=== PATIENT | female | born 1995 | race Caucasian/White ===

== ENCOUNTER 2017-08-05 20:40 | Emergency (ER) | payer BC ==
[~2017-08-05] VITALS: Ht 165.1 cm; Wt 90.7 kg
[2017-08-05 20:43] VITALS: BP 145/78
[2017-08-05] MEDS ORDERED: CLIN300C8 PO (21:14)
[2017-08-05] MEDS ORDERED: HYDR-965 PO (21:14)
[2017-08-05] MEDS ORDERED: ONDANSETRON ODT 4 MG TAB.RAPDIS PO ONE (21:15)
--- NOTE | 2017-08-05 21:16 | PHYS DOC ---
General Chief Complaint: DENTAL PROBLEM Stated Complaint: DENTAL PAIN Time Seen by MD: 20:43 Source: patient Exam Limitations: no limitations Problems: History of Present Illness Initial Comments Patient is a 22-year-old who comes to the ED complaining of dental pain. Patient states she's had chronic problems with her left posterior upper molar. She states she tried to see a dentist a few weeks ago and they did not take her insurance. She reports that her symptoms improved and she chose not to follow- up. States that today around 2 PM her tooth began hurting again and by 5 PM was severe, she took ibuprofen without any relief. Denies headache fever chills or myalgias. Pain described as severe sharp and throbbing worse with biting down. Timing/Duration: other Severity: severe Location: dental Prearrival Treatment: over the counter meds Modifying Factors: improves with other Associated Symptoms: tooth pain Allergies: Coded Allergies: No Known Drug Allergies (Unverified , 08/05/17) Past Medical History Medical History: no pertinent history Surgical History: no surgical history Social History Smoker: non-smoker Alcohol: none Drugs: none Constitutional: denies chills, denies fever Ears: denies dizziness, denies tinnitus Nose: denies clots, denies congestion Mouth: see HPI Throat: denies pain, denies discharge, denies neck stiffness, denies painful swallowing, denies difficulty with fluids Respiratory: denies cough, denies shortness of breath Gastrointestinal: denies abdominal pain, denies nausea, denies vomiting Musculoskeletal: denies back pain, denies neck pain Neurological: denies headache, denies weakness Physical Exam General Appearance: mild distress, obese Eyes: bilateral eye normal inspection, bilateral eye PERRL, bilateral eye EOMI Ears: bilateral ear auricle normal, bilateral ear canal normal, bilateral ear TM normal Nose: normal inspection Mouth/Throat: other (left posterior upper molar with severe caries and gingival swelling no purulence no bony tenderness no facial swelling.) Neck: non-tender, supple Cardiovascular/Respiratory: normal peripheral pulses, no respiratory distress 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 Her questions were answered she expressed agreement and understanding with the treatment plan. Departure Time of Disposition: 21:15 Disposition: 01 HOME, SELF-CARE Diagnosis: dental abscess Condition: GOOD Patient Instructions: Dental Abscess Additional Instructions: No driving or operating machinery while taking sedative pain medications. Aggressive hydration to prevent dehydration. [id number] ibuprofen for baseline discomfort. Prescription: Sunset 7.5 mg quantity 10, clindamycin As discussed you must follow-up with a dentist for resolution of this condition. Call tomorrow to schedule next available appointment. Return to ED with new or changing symptoms. SHAYNE LOVETT DO Aug 05, 2017 21:16
[2017-08-05] MEDS ORDERED: HYDROcodone/APAP 10/325 1 TAB TABLET PO ONE (21:20)
[2017-08-05] MEDS ORDERED: CLINDAMYCIN HCL 150 MG CAPSULE PO ONE (21:30)
[2017-08-05] MEDS ORDERED: CLINDAMYCIN 900 MG/6 ML VIAL. IM ONE (21:30)
== END 2017-08-05 21:44 | disposition home or self-care (01) ==
LOC: ER 20:40
DX: K04.7 Periapical abscess without sinus (principal)
CPT/HCPCS: 99284; Q0162